=== PATIENT | female | born 1945 | race Caucasian/White ===

== ENCOUNTER → 2017-06-27 | Outpatient (CLI) | payer OTHER, BC ==
[~2017-06-27] MED LIST: AMOX250C3 PO; ASPEC81 PO; ASPI81TA28 PO; BNTUNK; CIPR1TAB11 PO; CLB/200 PO; CRAN1CAP14 PO; CYM/30 PO; DICY20TA10 PO; DULO60CA44 PO; FENO134C2 PO; GABA300C19 PO; MECL1TAB42 PO; MRPSRUNK; MULT-506 PO; ONDA4TAB65 PO; POLY99.02 OP; PRAV20TA PO; PRLSR20 PO; RXC5 PO; SITA100T3 PO; VALS160T60 PO; [UNRECOGNIZED DRUG - CODE] PO; trilipix; vagifem
--- NOTE | 2017-06-27 17:10 | DIAGNOSTIC IMAGING REPORT ---
ULTRASOUND BILATERAL LOWER EXTREMITY VENOUS CLINICAL HISTORY: Lower extremity edema. COMPARISON STUDY: No priors. TECHNIQUE: Real-time, grayscale, and color Doppler sonography of the deep veins of the right and left lower extremity was performed from the inguinal crease to the calf. Compression and augmentation were utilized. FINDINGS: There is no sonographic evidence of deep venous thrombosis identified in the right or left lower extremity. The common femoral, superficial femoral, and popliteal veins are patent and normally compressible bilaterally. The greater saphenous vein and the profunda femoris vein at the junction with the common femoral vein are clear in both legs. The visualized calf veins are patent bilaterally. IMPRESSION: There is no sonographic evidence of deep venous thrombosis identified in the right or left lower extremity. Electronically signed by: Jed Douglass M.D. 06/27/2017 5:09 PM Dictated Date/Time: 06/27/2017 5:09 PM
--- NOTE | 2017-07-01 14:04 | CODING QUERY MEDICAL NECESSITY ---
SUPPORTING DIAGNOSIS NEEDED A supporting diagnosis is required for the test/procedure performed on this patient in order for us to be reimbursed by the patient's insurance. Please provide a supporting diagnosis for the following test/procedure listed below next to the test name along with your signature. *If there is no additional diagnosis for this patient that would support the following test/procedure please document that below next to the test/procedure. Test(s)/Procedure(s) that require a supporting diagnosis: * US VENOUS DOPPLER EXT BILATERAL DIAGNOSIS: Provider Signature: Date: Thank you Tiffany Christiansen [employer] Once completed, please kindly fax back to [phone] For questions please call [phone]
== END | disposition home or self-care (01) ==
LOC: C.ULTR 16:08
PROVIDERS: ATTEND Orthopaedic Surgery Orthopaedic Surgery of the Spine
DX: M79.89 Other specified soft tissue disorders (principal); R22.43 Localized swelling, mass and lump, lower limb, bilateral

== ENCOUNTER 2017-07-13 07:58 | Inpatient (IN) | payer OTHER, BC ==
[2017-07-07 09:47] VITALS: BMI 31.0
--- NOTE | 2017-07-07 10:34 | PAT Medication Instructions ---
Service Date Jul 07, 2017. Current Home Medication List Aspirin (Aspirin Ec), 81 MG PO QPM Celecoxib (CeleBREX), 1 CAP PO QAM Cranberry-Vitamin C-Vitamin E (Cranberry Plus Vitamin C), 1 CAP PO QAM Dicyclomine Hcl (Dicyclomine Hcl), 1 TAB PO BID PRN for PRN Duloxetine HCl (Cymbalta), 1 CAP PO QPM Duloxetine Hcl (Cymbalta), 60 MG PO QPM Fenofibrate (Tricor ), 134 MG PO QPM Gabapentin (Neurontin), 300 MG PO BID Meclizine Hcl (Meclizine Hcl), 1 TAB PO TID PRN for VERTIGO Omeprazole (Prilosec), 20 MG PO DAILY PRN for Indigestion Pravastatin (Pravachol ), 20 MG PO QPM Sitagliptin Phosphate (Januvia), 100 MG PO NOON Valsartan/Hctz (Diovan Hct 160MG/25MG), 1 TAB PO QAM Medication Instructions For Your Scheduled Surgery - Held as of 07/05/17: Aspirin (Aspirin Ec), 81 MG PO QPM Celecoxib (CeleBREX), 1 CAP PO QAM - Hold the following medications as of 07/08/17: Cranberry-Vitamin C-Vitamin E (Cranberry Plus Vitamin C), 1 CAP PO QAM - Hold the following medications 24 hours prior to surgery: Fenofibrate (Tricor ), 134 MG PO QPM - Hold the following medications the morning of surgery: Dicyclomine Hcl (Dicyclomine Hcl), 1 TAB PO BID PRN for PRN Sitagliptin Phosphate (Januvia), 100 MG PO NOON Valsartan/Hctz (Diovan Hct 160MG/25MG), 1 TAB PO QAM - Take the following medications the morning of surgery with a sip of water OTHERWISE NOTHING TO EAT OR DRINK AFTER MIDNIGHT: Gabapentin (Neurontin), 300 MG PO BID Meclizine Hcl (Meclizine Hcl), 1 TAB PO TID PRN for VERTIGO Omeprazole (Prilosec), 20 MG PO DAILY PRN for Indigestion - Take the following medications as scheduled the night before surgery: Duloxetine HCl (Cymbalta), 1 CAP PO QPM Duloxetine Hcl (Cymbalta), 60 MG PO QPM Dicyclomine Hcl (Dicyclomine Hcl), 1 TAB PO BID PRN for PRN Pravastatin (Pravachol ), 20 MG PO QPM Gabapentin (Neurontin), 300 MG PO BID Meclizine Hcl (Meclizine Hcl), 1 TAB PO TID PRN for VERTIGO If you have any questions please call us at [phone] or [phone] or [phone]
--- NOTE | 2017-07-07 11:29 | DIAGNOSTIC IMAGING REPORT ---
CHEST PREADMISSION(PA/LAT) CLINICAL HISTORY: Preoperative chest COMPARISON STUDY: May 21, 2011 FINDINGS: The cardiac and mediastinal contours are normal. There is no evidence of focal pulmonary consolidation. There is no evidence of failure. No pleural effusions are visualized.[ Postsurgical changes are present within the lumbar spine. There is a prominent scoliosis. There are advanced arthritic changes within the right shoulder. IMPRESSION: No active disease in the chest. Electronically signed by: Dre Arboleda M.D. 07/07/2017 11:28 AM Dictated Date/Time: 07/07/2017 11:28 AM
[2017-07-07 12:14] LABS: BASO % 1.4 %; COMPLETE YES; EOS % 2.2 %; HEMATOCRIT 45.3 % (37-47); IG% 0.3 %; LYMPH % 29.2 %; MEAN CELL VOLUME 93.8 fL (80-100); MEAN CORPUSCULAR HEMOGLOBIN 31.1 pg (25-34); MEAN CORPUSCULAR HGB CONC 33.1 g/dl (32-36); MEAN PLATELET VOLUME 10.5 fL (7.4-10.4); MONO % 8.2 %; NEUT % 58.7 %; PLATELET COUNT 348 K/uL (130-400); RED BLOOD COUNT 4.83 M/uL (4.2-5.4); WHITE BLOOD COUNT 7.19 K/uL (4.8-10.8)
[2017-07-07 12:28] LABS: BUN/CREATININE RATIO 32.4 (10-20); CALCIUM 9.9 mg/dl (8.5-10.1); CREATININE 0.65 mg/dl (0.60-1.20); POTASSIUM 4.2 mmol/L (3.5-5.1)
[2017-07-07 12:36] LABS: URINE APPEARANCE CLEAR (CLEAR); URINE BILIRUBIN NEG (NEG); URINE COLOR YELLOW; URINE EPITHELIAL CELL AUTO 0-5 /lpf (0-5); URINE NITRITE NEG (NEG); URINE PH 5.5 (4.5-7.5); URINE SPECIFIC GRAVITY 1.019 (1.000-1.030); UROBILINOGEN NEG (NEG)
[2017-07-07 12:42] LABS: MANUAL MICROSCOPIC REQUIRED? NO; REVIEW REQ? NO
[2017-07-13] VITALS (12 sets, daily range): BP systolic 120–160; BP diastolic 62–97; PULSE 81–97; TEMP 36.3–36.9; O2SAT 94–98; Ht 165.1 cm; Wt 84.9 kg
[~2017-07-13] VITALS: Ht 165.1 cm; Wt 84.9 kg
[~2017-07-13 07:58] MED LIST changes: -AMOX250C3 PO; -ASPEC81 PO; +ATROPINE SULFATE 0.1 MG/ML 5ML SYR IV PRN; -BNTUNK; +CEFAZOLIN 2000 MG/60 ML D5W IV SCH; -CIPR1TAB11 PO; +EpHEDrine SULFATE INJ 50 MG/ML AMP IV PRN; +FENTANYL CITRATE INJ 50 MCG/1 ML 2 ML VIAL IV PRN; +LACTATED RINGER'S 1000ML 1,000 ML IV SCH; -MRPSRUNK; -MULT-506 PO; -ONDA4TAB65 PO; +ONDANSETRON INJ 2 MG/ML 2 ML VIAL IV PRN; -POLY99.02 OP; -RXC5 PO; -[UNRECOGNIZED DRUG - CODE] PO; -trilipix; -vagifem
[2017-07-13] MEDS ORDERED: CIPR1TAB11 PO (08:56)
[2017-07-13] MEDS ORDERED: AMOX250C3 PO (08:56)
[2017-07-13] MEDS ORDERED: MIDAZOLAM HCL 1 MG/ML 2ML VIAL ONE (09:02)
[2017-07-13] MEDS ORDERED: FENTANYL CITRATE INJ 50 MCG/1 ML 2 ML VIAL ONE ×4 (09:03→11:22)
--- NOTE | 2017-07-13 09:06 | History & Physical Bridge Note ---
H&P Re-Evaluation Bridge Note: I have examined the patient, reviewed the History & Physical and in the interval since the performance of the History & Physical I have noted the following changes of clinical significance: No changes noted
--- NOTE | 2017-07-13 09:08 | History and Physical ---
History & Physical Date Jul 13, 2017. Chief Complaint Neck and arm pain History of Present Illness The patient is a 72 year old female with complaints of neck and arm pain Additional History Hepatic Disease: No Endocrine Disorder: No Kidney Disease: No Hypertension: No Heart Disease: No Bleeding Tendencies: No Infectious Diseases: No Allergies Coded Allergies: Amlodipine (Verified Allergy, Unknown, chest pain, 07/13/17) Benazepril (Verified Allergy, Unknown, chest pain, 07/13/17) Morphine (Verified Allergy, Unknown, vomiting, 07/13/17) Home Medications Scheduled Amoxicillin (Amoxil), Unknown Dose PO TID Aspirin (Aspirin Ec), 81 MG PO QPM Celecoxib (CeleBREX), 1 CAP PO QAM Ciprofloxacin Tab (Cipro), Unknown Dose PO BID Cranberry-Vitamin C-Vitamin E (Cranberry Plus Vitamin C), 1 CAP PO QAM Duloxetine HCl (Cymbalta), 1 CAP PO QPM Duloxetine Hcl (Cymbalta), 60 MG PO QPM Fenofibrate (Tricor ), 134 MG PO QPM Gabapentin (Neurontin), 300 MG PO BID Pravastatin (Pravachol ), 20 MG PO QPM Sitagliptin Phosphate (Januvia), 100 MG PO NOON Valsartan/Hctz (Diovan Hct 160MG/25MG), 1 TAB PO QAM Scheduled PRN Dicyclomine Hcl (Dicyclomine Hcl), 1 TAB PO BID PRN for PRN Meclizine Hcl (Meclizine Hcl), 1 TAB PO TID PRN for VERTIGO Omeprazole (Prilosec), 20 MG PO DAILY PRN for Indigestion Physical Examination Skin: warm/dry, no rash Eyes: normal inspection, EOMI, sclerae normal ENT: normal ENT inspection, pharynx normal Head: normocephalic, atraumatic Neck: supple, no adenopathy, trachea midline Respiratory/Chest: lungs clear, normal breath sounds, no respiratory distress Cardiovascular: regular rate, rhythm, no edema, no murmur Abdomen / GI: normal bowel sounds, non tender Back: normal inspection Extremities: normal inspection, normal range of motion Neurologic/Psych: no motor/sensory deficits, alert, normal reflexes, oriented x 3 Diagnosis Cervical spinal stenosis with myeloradiculopathy Plan of Treatment Anterior cervical discectomy and fusion C4 5 with corpectomy of C6 possible ACDF C3 4
[2017-07-13] MEDS ORDERED: SCOPOLAMINE 1.5 MG TDSY TD ONE (09:24)
[2017-07-13] MEDS ORDERED: BACITRACIN 50000 UNIT VIAL ONE (09:29)
[2017-07-13] MEDS ORDERED: SCOPOLAMINE 1.5 MG TDSY TD SCH ×2 (09:30→12:00)
[2017-07-13] MEDS ORDERED: HYDROmorphone INJ 2 MG/ML SYR/VIAL ONE (10:15)
[2017-07-13] MEDS ORDERED: FLOSEAL HEMOSTATIC MATRIX 5ML TOP ONE (11:49)
[2017-07-13] MEDS ORDERED: PHENYLEPHRINE 100MCG/ML 5ML SYR ONE (11:55)
[2017-07-13] MEDS ORDERED: DEXAMETHASONE SOD INJ 4 MG/ML VIAL ONE (11:55)
[2017-07-13] MEDS ORDERED: ONDANSETRON INJ 2 MG/ML 2 ML VIAL ONE (11:55)
[2017-07-13] MEDS ORDERED: ROCURONIUM BROMIDE 10 MG/ML 5 ML VIAL IV ONE (11:55)
[2017-07-13] MEDS ORDERED: LABETALOL HCL IV 5 MG/ML 20ML IV ONE (11:55)
[2017-07-13] MEDS ORDERED: RANITIDINE HCL 25 MG/ML INJ ONE (11:55)
[2017-07-13] MEDS ORDERED: PROPOFOL IV EMULSION 10 MG/ML 20 ML VIAL IV ONE (11:55)
[2017-07-13] MEDS ORDERED: LIDOCAINE HCL 2% 2 ML VIAL (20MG/ML) ONE (11:55)
[2017-07-13] MEDS ORDERED: NEOSTIGMINE METHYLSULFATE 1 MG/ML 10ML VIAL ONE (11:55)
[2017-07-13] MEDS ORDERED: GLYCOPYRROLATE INJ 0.2 MG/ML VIAL ONE (11:55)
[2017-07-13] MEDS ORDERED: MAGNESIUM HYDROXIDE SUSP 30 ML UDC PO PRN (12:00)
[2017-07-13] MEDS ORDERED: DiphenhydrAMINE HCL 50 MG/ML VIAL IV PRN (12:00)
[2017-07-13] MEDS ORDERED: LORAZEPAM 0.5 MG TAB PO PRN (12:00)
[2017-07-13] MEDS ORDERED: RACEPINEPHRINE 2.25% NEBU SOLN 0.5 ML VIAL INH PRN (12:00)
[2017-07-13] MEDS ORDERED: DO NOT ADMINISTER FLU VACCINE PRN ×3 (12:00)
[2017-07-13] MEDS ORDERED: ONDANSETRON INJ 2 MG/ML 2 ML VIAL IV PRN (12:00)
[2017-07-13] MEDS ORDERED: NALOXONE HCL 0.4 MG/1 ML VIAL/CARP IV PRN (12:00)
[2017-07-13] MEDS ORDERED: DEXAMETHASONE INJ 8 MG in SYRINGE 0 ML IV PRN (12:00)
[2017-07-13] MEDS ORDERED: HYDROmorphone INJ 0.5 MG/0.5 ML SYR IV PRN (12:00)
[2017-07-13] MEDS ORDERED: ACETAMINOPHEN IV 100 ML IV PRN (12:00)
[2017-07-13] MEDS ORDERED: DO NOT ADMINISTER PNEUMOCOCCAL VACCINE PRN ×2 (12:00)
--- NOTE | 2017-07-13 12:07 | [facility] Operative Report ---
Operative Report Operative Date Jul 13, 2017. Pre-Operative Diagnosis Cervical Spinal Stenosis with myeloradiculopathy Post-Operative Diagnosis same Procedure(s) Performed #1 anterior cervical corpectomy C6. #2 anterior cervical discectomy C4 5. #3 into her cervical arthrodesis C4 to C5 C5 to C7. #4 placement peek cage 8 mm in height C4 5 and 23 mm C5 to C7. #5 of locally harvested morcellized autograft combined with ostial amp in the interbody cages. #6 application of nuñez plate and screws from C4 to C7. Surgeon Dr. Domenico Haile Biomedical Manager Surgeon(s) Vicky Rose PA-C Estimated Blood Loss 20 ml Findings Severe spinal stenosis Specimens none per surgeon Description of Procedure Patient was met with preoperatively case discussed all questions are dressed. After informed consent was obtained patient was taken to the operative suite underwent intubation placed in a supine position the Zacarias table head in [place] headholder. All bony promises well-padded eyes inspected to ensure no external pressure. This point the anterior cervical spine was prepped and draped nostril fashion. Sharp dissection we assistance of bipolar electrocautery was performed onto an exposing the anterior cervical spine spine from C4 to C7. Self retaining retractors were placed. Verified our position with fluoroscopy. Complete discectomy of C5 6 was performed out to the uncovertebral joints followed by C6 7. [place] distracting pins were then placed in C5 and C7 to distract across C6 vertebral body. Complete corpectomies and performed including removal of all posterior annular fibers and longitudinal ligament and bilateral foraminotomies. An plates were then burred to subcortical bleeding bone and a 23 mm peek cage filled with locally harvested morcellized autograft ostial amp tapped in position. Distracting apparatus was removed and I proceeded the C4 5. Again a complete discectomy performed out to the uncovertebral joints bilaterally. I did remove all posterior inner fibrous longitudinal ligament and bilateral foraminotomies performed. An plates were then burred to subcortical bleeding bone and an 8 mm peek cage filled with ostial amp and local autograft tapped in position. Distracting apparatus was removed all anterior osteophytes burred to smooth cortical surface. Nñuez plate and screws with applied with the assistance of fluoroscopy. Incision was in copious irrigated explored to ensure there is no damage to surrounding structures remaining bleeding. 10 round JOSE G drain inserted. Incision was then closed with 2 Vicryl in the fascia and 4 Monocryl for final skin closure. Steri-Strips sterile dressing placed. Patient we can taken to PACU in stable condition. Please note Vicky Lee was present at the entire procedure involved in patient positioning complex portions of the procedure and final skin closure. I attest to the content of the Intraoperative Record and any orders documented therein. Any exceptions are noted below.
--- NOTE | 2017-07-13 13:18 | Anesthesiology Progress Note ---
Anesthesia Post Op Note Date & Time Jul 13, 2017 at 13:17 Vital Signs Pain Intensity: 2 Vital Signs Past 12 Hours Date Time Temp Pulse Resp B/P (MAP) Pulse Ox O2 Delivery O2 Flow Rate FiO2 07/13/17 13:05 36.6 85 14 142/94 96 Nasal Cannula 2 07/13/17 12:55 85 14 146/80 96 Nasal Cannula 2 07/13/17 12:45 85 14 129/84 96 Nasal Cannula 2 07/13/17 12:35 85 14 138/81 98 Oxymask 10 07/13/17 12:25 85 14 148/88 98 Oxymask 10 07/13/17 12:15 83 14 114/93 98 Oxymask 10 07/13/17 12:05 36.4 88 14 149/92 98 Oxymask 10 07/13/17 08:30 36.6 97 20 160/97 97 Room Air Notes Mental Status: alert / awake / arousable, participated in evaluation Pt Amnestic to Procedure: Yes Nausea / Vomiting: adequately controlled Pain: adequately controlled Airway Patency, RR, SpO2: stable & adequate BP & HR: stable & adequate Hydration State: stable & adequate Anesthetic Complications: no major complications apparent Anesthetic Complications: Upper lip cut during intubation - no damage to teeth or gums. Cut on lip clean and dry on discharge from PACU.
--- NOTE | 2017-07-13 13:58 | DIAGNOSTIC IMAGING REPORT ---
CERVICAL 2 OR 3 VIEWS CLINICAL HISTORY: Anterior discectomy and fusion. COMPARISON STUDY: No previous studies for comparison. Fluoroscopy time: 11 seconds. FINDINGS: 2 fluoroscopic images demonstrate a C6 corpectomy and C4-C5 discectomy with a C4-C7 anterior fusion with 2 screws within the C4, C5 and C7 vertebral bodies. Endotracheal tube is noted. IMPRESSION: Fluoroscopic images demonstrating a C6 corpectomy, C4-C5 discectomy and C4-C7 anterior fusion. Electronically signed by: Philip Morataya M.D. 07/13/2017 1:57 PM Dictated Date/Time: 07/13/2017 1:42 PM
[2017-07-13] MEDS: SODIUM CHLORIDE 0.9% 1000ML 1,000 ML IV SCH (14:25)
[2017-07-13] MEDS ORDERED: CHECK SCOPOLAMINE PATCH PLACEMENT SCH (16:00)
[2017-07-13] MEDS: CHECK SCOPOLAMINE PATCH PLACEMENT SCH (16:00)
[2017-07-13] MEDS ORDERED: NURSING VERBAL MED ORDER ONE (18:00)
[2017-07-13] MEDS ORDERED: PHARMACY GLYCEMIC MGMT CONSULT PRN (18:04)
[2017-07-13] MEDS: CEFAZOLIN IV 2,000 MG in DEXTROSE 5% 50ML 50 ML IV SCH (18:13)
[2017-07-13] MEDS ORDERED: GLUCAGON FOR INJ 1 MG VIAL SQ PRN (18:15)
[2017-07-13] MEDS ORDERED: GLUCOSE 10 TABS/TUBE PO PRN (18:15)
[2017-07-13] MEDS ORDERED: DEXTROSE 50% 50 ML SYR IV PRN (18:15)
[2017-07-13] MEDS ORDERED: GLUCOSE 40% GEL 15 GM TUBE PO PRN (18:15)
[2017-07-13] MEDS ORDERED: INSULIN GLARGINE SOLOSTAR 100 UNITS/ML 3 ML PEN SC ONE ×2 (18:30→23:00)
[2017-07-13] MEDS: INSULIN ASPART 100 UNITS/ML 3 ML PEN SC SCH ×2 (18:38→21:04)
--- NOTE | 2017-07-13 18:51 | Pharmacy Progress Note ---
Glycemic Control Intl Consult Date of Service Jul 13, 2017. Scope Glycemic Pharmacist consulted by JOCELYN Moe on 07/13/17 for glycemic control and to write orders per [facility] inpatient glycemic control protocol Objective Weight (Kilograms): 84.900 Accuchecks BSG (last 24hrs): Test 07/13/17 08:41 07/13/17 12:15 07/13/17 17:00 Bedside Glucose 115 mg/dl (70-90) 139 mg/dl (70-90) 207 mg/dl (70-90) Recent Pertinent Medications Outpatient Anti-diabetic Regimen: * Januvia 100 mg daily - patient reports this is new * A1c = unknown Risk Factors for Insulin Resistance: * Steroids: Decadron 12 mg intraop and 6 mg x 3 doses ordered postop * Recent Surgery: POD #0 s/p spinal surgery * Diet: Clear/type 2 diabetes Assessment & Plan ASSESSMENT: * 72 y/o female with a recent diagnosis of diabetes * Pt is maintained on oral antidiabetic agents as an outpatient * Oral agents are not recommended for inpatient use d/t drug interactions, changing PO intake, and difficulty titrating for acute hyper/hypoglycemia. ADA recommends re-initiating outpatient oral agents 1-2 days prior to discharge if/ when appropriate if they were held on admission. * Will hold oral agents for admission and utilize SQ basal bolus insulin regimen which is the recommended regimen for inpatient glycemic control. * Will initiate weight based insulin dosing for insulin deric patient and titrate based on BSG trends. * With high dose Decadron on board and continuing postoperatively, patients usually require large amounts of insulin in the postop period. Will plan to initiate insulin orders using insulin calculator estimates based upon a stress level of 3 for POD #0, stress level of 2 for AM of POD #1 and stress level of 3 for PM of POD #2 PLAN FOR INPATIENT GLYCEMIC CONTROL: * Holding outpatient oral diabetes medications - can resume POD #1 or #2 if po intake acceptable * For 07/13 * LANTUS 30 units x 1 now, then additional 10 units tonight if BSG > 150 * Novolog ACHS + 0200 * Goal 110-140 * CF 20 * CR 6 * For 07/14 * Lantus 15 units in the AM, 8 units in the PM * Novolog ACHS * Goal 110-140 * CF 20 -> change to 30 starting with dinner * CR 6 -> change to 9 starting with dinner * A1c w/ AM labs as per [facility] standards for inpatient diabetes control * Please note that the plan above was derived based on current level of insulin resistance and hospital stress. These recommendations are appropriate for inpatient admission only. Plan of care upon discharge will need to be reassessed to avoid potential outpatient hypo/hyperglycemia. Thank you.
[2017-07-13] MEDS: DEXAMETHASONE INJ 6 MG in SYRINGE 0 ML IV SCH (20:21)
[2017-07-13] MEDS: DOCUSATE SODIUM 100 MG CAP PO SCH (21:01)
[2017-07-14] VITALS (18 sets, daily range): BP systolic 127–149; BP diastolic 74–84; PULSE 67–81; TEMP 36.3–37.2; O2SAT 92–97
[2017-07-14] MEDS: CHECK SCOPOLAMINE PATCH PLACEMENT SCH ×3 (00:21→15:54)
[2017-07-14] MEDS: SODIUM CHLORIDE 0.9% 1000ML 1,000 ML IV SCH (00:21)
[2017-07-14] MEDS ORDERED: INSULIN ASPART 100 UNITS/ML 3 ML PEN SC ONE (02:00)
[2017-07-14] MEDS: CEFAZOLIN IV 2,000 MG in DEXTROSE 5% 50ML 50 ML IV SCH ×2 (02:09→10:41)
[2017-07-14] MEDS: DEXAMETHASONE INJ 6 MG in SYRINGE 0 ML IV SCH ×2 (04:04→12:57)
--- NOTE | 2017-07-14 06:56 | Clinical Documentation Query ---
Dr. MEIER POINT LAY : CLINICAL DOCUMENTATION QUERY Patient is a 72 year old female admitted for elective operative treatment of cervical spinal stenosis. H&P notes no PMH. However, home medication list includes: Scheduled Amoxicillin (Amoxil), Unknown Dose PO TID Aspirin (Aspirin Ec), 81 MG PO QPM Celecoxib (CeleBREX), 1 CAP PO QAM Ciprofloxacin Tab (Cipro), Unknown Dose PO BID Cranberry-Vitamin C-Vitamin E (Cranberry Plus Vitamin C), 1 CAP PO QAM Duloxetine HCl (Cymbalta), 1 CAP PO QPM Duloxetine Hcl (Cymbalta), 60 MG PO QPM Fenofibrate (Tricor ), 134 MG PO QPM Gabapentin (Neurontin), 300 MG PO BID Pravastatin (Pravachol ), 20 MG PO QPM Sitagliptin Phosphate (Januvia), 100 MG PO NOON Valsartan/Hctz (Diovan Hct 160MG/25MG), 1 TAB PO QAM Scheduled PRN Dicyclomine Hcl (Dicyclomine Hcl), 1 TAB PO BID PRN for PRN Meclizine Hcl (Meclizine Hcl), 1 TAB PO TID PRN for VERTIGO Omeprazole (Prilosec), 20 MG PO DAILY PRN for Indigestion In your clinical opinion is this patient being managed for: ( ) Osteoarthritis, GERD, hypertension, hyperlipidemia, depression, diabetes ( ) Not Agree ( ) Other explanation of clinical findings (Please Explain) ( ) Unable to determine (Please Define) ( ) Need to Discuss The medical record reflects the following clinical findings, treatment, and risk factors. Please clarify and document your clinical opinion in the progress notes and discharge summary. Terms such as "probable", "suspected", "likely", "questionable", "possible", or "still to be ruled out" are acceptable. IF IN AGREEMENT, YOU MUST DOCUMENT ABOVE DIAGNOSTIC STATEMENT IN DAILY PROGRESS NOTES AND DISCHARGE SUMMARY. This document is not part of the patient's record. Thank You, Marshall Schwartz, JARETT [phone]
[2017-07-14] MEDS: DOCUSATE SODIUM 100 MG CAP PO SCH ×2 (08:56→21:00)
[2017-07-14] MEDS ORDERED: INSULIN GLARGINE SOLOSTAR 100 UNITS/ML 3 ML PEN SC ONE ×2 (09:00→21:00)
[2017-07-14] MEDS: INSULIN ASPART 100 UNITS/ML 3 ML PEN SC SCH ×4 (09:00→21:00)
--- NOTE | 2017-07-14 09:02 | Progress Note ---
Progress Note Date of Service Jul 14, 2017. Progress Note Patient's swallowing recently well. Denies any hoarseness. Notes some improvement of the upper x-rays. Assessment status post anterior cervical discectomy and fusion. Plan at this time she'll be made nothing by mouth after midnight for plan for decompression and posterior cervical stabilization tomorrow.
[2017-07-14] MEDS: OXYCODONE HCL IR 5 MG TAB (IMMEDIATE RELEASE) PO PRN ×3 (10:45→21:30)
--- NOTE | 2017-07-14 10:57 | Anesthesiology Progress Note ---
Anesthesia Post Op Note Date & Time Jul 14, 2017 at 10:57 Vital Signs Pain Intensity: 6.0 Vital Signs Past 12 Hours Date Time Temp Pulse Resp B/P (MAP) Pulse Ox O2 Delivery O2 Flow Rate FiO2 07/14/17 10:46 37.1 72 16 131/76 95 Nasal Cannula 2.0 Humidified Oxygen 07/14/17 08:45 37.0 72 16 146/83 94 Nasal Cannula 2.0 Humidified Oxygen 07/14/17 07:40 Nasal Cannula 2.0 Humidified Oxygen 07/14/17 06:33 36.5 80 16 127/78 95 Nasal Cannula 07/14/17 04:45 36.3 74 16 139/74 95 Nasal Cannula 2.0 07/14/17 04:08 80 16 97 Nasal Cannula 3.0 07/14/17 02:34 36.5 80 16 136/82 96 Nasal Cannula 2.0 07/14/17 00:30 Nasal Cannula 2.0 07/14/17 00:30 79 16 132/84 96 Nasal Cannula 2.0 07/13/17 23:18 82 16 94 Nasal Cannula 3.5 Notes Mental Status: alert / awake / arousable, participated in evaluation Pt Amnestic to Procedure: Yes Nausea / Vomiting: adequately controlled Pain: adequately controlled Airway Patency, RR, SpO2: stable & adequate BP & HR: stable & adequate Hydration State: stable & adequate Anesthetic Complications: no major complications apparent
--- NOTE | 2017-07-14 13:07 | Anesthesiology Progress Note ---
Anesthesia Progress Note Date of Service Jul 14, 2017. Progress Notes The patient is a 72 y/o female scheduled for posterior cervical fusion by Dr. Haile tomorrow. On 07/13/17 she underwent an anterior neck fusion which she tolerated well. A Glidescope #3 was used with a good view. Other PMH includes HTN, dyslipidemia, GERD, NIDDM type 2, skin cancer, obesity, and migraines. On exam the patient is in a neck brace with a bandage over her anterior neck. she is a MP 3. Lungs are clear and heart is RRR. The patient was consented to general anesthesia. She was counseled to remain NPO after 2300.
[2017-07-14] MEDS ORDERED: NURSING VERBAL MED ORDER ONE ×2 (20:30→23:15)
[2017-07-14] MEDS: PRAVASTATIN SOD 20 MG TAB PO SCH (21:32)
[2017-07-14] MEDS: DULOXETINE (CYMBALTA) 30 MG CAP PO SCH (21:33)
[2017-07-15] VITALS (16 sets, daily range): BP systolic 117–155; BP diastolic 65–94; PULSE 64–82; TEMP 36.4–37.2; O2SAT 90–98
[2017-07-15] MEDS: CHECK SCOPOLAMINE PATCH PLACEMENT SCH ×2 (00:24→16:23)
[2017-07-15] MEDS ORDERED: BISACODYL 5 MG TABEC PO PRN (06:00)
[2017-07-15] MEDS: INSULIN ASPART 100 UNITS/ML 3 ML PEN SC SCH ×5 (06:00→21:37)
[2017-07-15] MEDS ORDERED: BISACODYL 10 MG SUPP PR PRN (06:00)
[2017-07-15] MEDS ORDERED: ROCURONIUM BROMIDE 10 MG/ML 5 ML VIAL IV ONE (06:32)
[2017-07-15] MEDS ORDERED: PROPOFOL IV EMULSION 10 MG/ML 20 ML VIAL IV ONE ×3 (06:32→07:53)
[2017-07-15] MEDS ORDERED: ONDANSETRON INJ 2 MG/ML 2 ML VIAL ONE (06:32)
[2017-07-15] MEDS ORDERED: LIDOCAINE HCL 2% 2 ML VIAL (20MG/ML) ONE (06:32)
[2017-07-15] MEDS ORDERED: FENTANYL CITRATE INJ 50 MCG/1 ML 2 ML VIAL ONE ×2 (06:32→10:02)
[2017-07-15] MEDS ORDERED: DEXAMETHASONE SOD INJ 4 MG/ML VIAL ONE (06:32)
[2017-07-15] MEDS ORDERED: MIDAZOLAM HCL 1 MG/ML 2ML VIAL ONE (06:32)
[2017-07-15] MEDS ORDERED: SODIUM CHLORIDE 0.9% PF 50 ML VIAL ONE (06:58)
[2017-07-15] MEDS ORDERED: BACITRACIN 50000 UNIT VIAL ONE (06:58)
[2017-07-15] MEDS ORDERED: THROMBIN FOR SOLN 20000 UNIT KIT ONE (07:11)
[2017-07-15] MEDS ORDERED: BUPIVACAINE/EPINEPHRINE 0.5% MPF 1:200,000 30 ML VIAL ONE (07:12)
[2017-07-15] MEDS: CEFAZOLIN IV 2,000 MG/60 ML D5W IV ONE ×2 (07:13→07:36)
[2017-07-15] MEDS ORDERED: SCOPOLAMINE 1.5 MG TDSY TD ONE (07:13)
--- NOTE | 2017-07-15 07:34 | History & Physical Bridge Note ---
H&P Re-Evaluation Bridge Note: I have examined the patient, reviewed the History & Physical and in the interval since the performance of the History & Physical I have noted the following changes of clinical significance: No changes noted decompression fusion c3-c7
[2017-07-15] MEDS ORDERED: NURSING VERBAL MED ORDER ONE ×2 (07:45→16:00)
[2017-07-15] MEDS ORDERED: HYDROmorphone INJ 2 MG/ML SYR/VIAL ONE ×2 (08:10→10:08)
[2017-07-15] MEDS: DOCUSATE SODIUM 100 MG CAP PO SCH ×2 (08:51→21:34)
[2017-07-15] MEDS ORDERED: FLOSEAL HEMOSTATIC MATRIX 10ML TOP ONE (09:55)
[2017-07-15] MEDS ORDERED: LORAZEPAM 0.5 MG TAB PO PRN (10:00)
[2017-07-15] MEDS ORDERED: NALOXONE HCL 0.4 MG/1 ML VIAL/CARP IV PRN ×2 (10:00)
[2017-07-15] MEDS ORDERED: DO NOT ADMINISTER PNEUMOCOCCAL VACCINE PRN ×2 (10:00)
[2017-07-15] MEDS ORDERED: DEXAMETHASONE INJ 8 MG in SYRINGE 0 ML IV PRN (10:00)
[2017-07-15] MEDS ORDERED: DiphenhydrAMINE HCL 50 MG/ML VIAL IV PRN (10:00)
[2017-07-15] MEDS ORDERED: INSULIN GLARGINE SOLOSTAR 100 UNITS/ML 3 ML PEN SC ONE (10:00)
[2017-07-15] MEDS ORDERED: MAGNESIUM HYDROXIDE SUSP 30 ML UDC PO PRN (10:00)
[2017-07-15] MEDS ORDERED: DO NOT ADMINISTER FLU VACCINE PRN ×3 (10:00)
[2017-07-15] MEDS ORDERED: LORAZEPAM INJ 0.5 MG in SYRINGE 0.75 ML IV PRN (10:00)
[2017-07-15] MEDS ORDERED: RACEPINEPHRINE 2.25% NEBU SOLN 0.5 ML VIAL INH PRN ×2 (10:00)
[2017-07-15] MEDS ORDERED: HYDROmorphone INJ 0.5 MG/0.5 ML SYR IV PRN (10:00)
--- NOTE | 2017-07-15 10:11 | [facility] Operative Report ---
Operative Report Operative Date Jul 15, 2017. Pre-Operative Diagnosis Cervical Spinal Stenosis with myeloradiculopathy Post-Operative Diagnosis same Procedure(s) Performed #1 posterior cervical decompression C3 C4 C5. #2 posterior cervical fusion C3 to C7. #3 placement posterior cervical instrumentation using globus rods and screws C3 to C7. #4 placement of locally harvested morcellized autograft in the posterior gutters. #5 placement of infuse collagen sponge and Master graft the posterior gutters. Surgeon Dr. Domenico Haile Manager Supply Surgeon(s) Andrea Shirley PA-C Estimated Blood Loss 100 ml Findings Severe spinal stenosis Specimens none per surgeon Description of Procedure Patient was met with preoperatively case discussed all questions are were addressed. After informed consent patient was taken to the operative suite underwent intubation placed in 3 prolonged Lr headholder. She's placed in a prone position the Zacarias table with chest pads and hip bolsters. All bony prominences were well-padded eyes inspected to ensure no external pressure. At this time the posterior cervical thoracic spine was prepped and draped nostril fashion. Sharp dissection with the assistance of [place] cautery was performed onto an exposing the lamina and lateral masses of C3-C4 C5-C6 and C7. Verified a position with fluoroscopy. Then performed a complete laminectomy of C5 C4 and C3. Lateral mass screws were then placed with the assistance of fluoroscopy in C3 C4 C6 and C7 bilaterally. The appropriate least sized michele was contoured and locked in position. The lateral masses in joints of C3 4 C4 5 C5 6 C6 7 burred to subcortical bleeding bone infuse collagen sponge mask graft and locally harvested morcellized autograft was placed in the posterior lateral gutters. 15 round JOSE G drain was inserted. Incision was then closed with 1 Vicryl in the fascia 2-0 Vicryl subcutaneous C 4 Monocryl for final skin closure Steri-Strip sterile dressing was placed patient we can take PACU stable condition. Please note Rodri record was present at the entire procedure involved in patient positioning complex portions of the surgery and final skin closure. I attest to the content of the Intraoperative Record and any orders documented therein. Any exceptions are noted below.
[2017-07-15] MEDS ORDERED: LABETALOL HCL IV 5 MG/ML 20ML IV ONE (10:35)
--- NOTE | 2017-07-15 10:59 | Pharmacy Progress Note ---
Glycemic Control Progress Note Date of Service Jul 15, 2017. Scope Glycemic Pharmacist consulted for glycemic control to write orders per [facility] inpatient glycemic control protocol. Objective Accuchecks BSG (last 24hrs): Test 07/14/17 11:58 07/14/17 17:09 07/14/17 20:44 07/15/17 00:21 Bedside Glucose 112 mg/dl (70-90) 167 mg/dl (70-90) 104 mg/dl (70-90) 91 mg/dl (70-90) Test 07/15/17 06:16 Bedside Glucose 94 mg/dl (70-90) HbA1c: Test 07/14/17 08:27 Hemoglobin A1c 6.1 % (4.5-5.6) H Recent Pertinent Medications The patient is currently receiving: * Basal insulin: Lantus one time doses per pharmacy * Correctional Insulin: Novolog Correction per scale ACHS Goal Range: Low 110 mg/dL - High 140 mg/dL Correction Factor: 30 mg/dL/unit * Prandial insulin: Per carb ratio of 1 unit per 9 grams CHO consumed Outpatient Anti-Diabetic Meds Januvia 100mg po daily at 1200 Assessment & Plan ASSESSMENT: * See progress note from 07/13 for more background info, in short: * Pt receiving SQ basal bolus insulin regimen for hyperglycemia secondary to baseline DM (outpatient regimen on hold), recent surgery, s/p decompression and posterior cervical stabilization today, and previous spinal surgery 07/13, and IV steroids pre and post op. * Changes needed to insulin regimen: * Lantus load for IV steroids and possibly another dose tomorrow morning based on BSG trends * Tighten CF/CR for IV steroids and loosen as steroids taper off PLAN FOR INPATIENT GLYCEMIC CONTROL: * Oral Agents * Continue to hold outpatient oral diabetes medications. * Resume 1-2 days post op, after renal function stable and diet tolerated * Basal insulin * Lantus 40 units SQ x 1 dose now * One time dose tomorrow morning based on BSG (likely 15 units) * Bolus insulin * NovoLog per scale ACHS or Q6hrs while NPO and overnight at 0200 * Goal Range: Low 110 mg/dL - High 140 mg/dL * Correction Factor: 20 mg/dL/unit * Nutritional / Prandial insulin per carb ratio of 1 unit per 6 grams CHO consumed * Loosen CF and CR tomorrow after IV steroids are discontinued and BSGs trending down RECOMMENDATIONS FOR DISCHARGE: * Continue Januvia 100mg PO daily at noon (A1c = 6.1%) * Please note that the plan above was derived based on current level of insulin resistance and hospital stress. These recommendations are appropriate for inpatient admission only. Plan of care upon discharge will need to be reassessed to avoid potential outpatient hypo/hyperglycemia. Thank you.
--- NOTE | 2017-07-15 11:14 | DIAGNOSTIC IMAGING REPORT ---
INTRAOPERATIVE RADIOGRAPHS CLINICAL HISTORY: C3-C7 spinal fusion. Fluoroscopy time: 24 seconds. FINDINGS: 5 spot fluoroscopic views of the cervical spine are correlated with intraoperative radiograph dated 07/13/2017. Again seen are changes from anterior fusion from C4 -C7. There are now changes from laminectomy and posterior fusion seen from C3 -C7. Interpedicular screws are present at all levels with the exception of C5. Discectomy change is again seen in the lower cervical region. Coils are noted below the C2 spinous process. The orthopedic hardware appears intact. An endotracheal tube is noted. IMPRESSION: Intraoperative images from posterior C3-C7 spinal fusion as above. Electronically signed by: Jed Douglass M.D. 07/15/2017 11:12 AM Dictated Date/Time: 07/15/2017 11:10 AM
--- NOTE | 2017-07-15 11:35 | Anesthesiology Progress Note ---
Anesthesia Post Op Note Date & Time Jul 15, 2017 at 11:35 Vital Signs Pain Intensity: 0 Vital Signs Past 12 Hours Date Time Temp Pulse Resp B/P (MAP) Pulse Ox O2 Delivery O2 Flow Rate FiO2 07/15/17 11:30 72 17 139/80 92 Nasal Cannula 4 07/15/17 11:20 36.2 69 15 135/76 93 Nasal Cannula 4 07/15/17 11:10 71 15 146/68 92 Nasal Cannula 4 07/15/17 11:00 72 12 132/72 95 Oxymask 10 07/15/17 10:50 71 13 138/67 95 Oxymask 10 07/15/17 10:40 68 18 110/53 96 Oxymask 10 07/15/17 10:34 36.4 93 16 160/102 98 Oxymask 10 07/15/17 07:01 36.8 78 16 164/78 (106) 90 Room Air 07/15/17 05:55 36.9 82 16 152/79 (103) 90 Room Air 07/15/17 03:52 36.7 69 16 155/86 93 Room Air 07/15/17 03:27 76 16 94 Room Air 07/14/17 23:47 37.1 67 16 149/74 (99) 93 Notes Mental Status: alert / awake / arousable, participated in evaluation Pt Amnestic to Procedure: Yes Nausea / Vomiting: adequately controlled Pain: adequately controlled Airway Patency, RR, SpO2: stable & adequate BP & HR: stable & adequate Hydration State: stable & adequate Anesthetic Complications: no major complications apparent
[2017-07-15] MEDS ORDERED: SCOPOLAMINE 1.5 MG TDSY TD SCH (12:00)
[2017-07-15] MEDS: DEXAMETHASONE INJ 6 MG in SYRINGE 0 ML IV SCH ×2 (14:06→21:39)
[2017-07-15] MEDS: CEFAZOLIN IV 2,000 MG in DEXTROSE 5% 50ML 50 ML IV SCH (16:23)
[2017-07-15] MEDS: LACTATED RINGER'S 1000ML 1,000 ML IV SCH (16:24)
[2017-07-15] MEDS: OXYCODONE HCL IR 5 MG TAB (IMMEDIATE RELEASE) PO PRN (17:16)
[2017-07-15] MEDS: PRAVASTATIN SOD 20 MG TAB PO SCH (21:34)
[2017-07-15] MEDS: DULOXETINE (CYMBALTA) 30 MG CAP PO SCH (21:34)
[2017-07-16] VITALS (19 sets, daily range): BP systolic 135–172; BP diastolic 67–87; PULSE 63–80; TEMP 36.4–37; O2SAT 91–97
[2017-07-16] MEDS: CEFAZOLIN IV 2,000 MG in DEXTROSE 5% 50ML 50 ML IV SCH ×2 (00:05→07:46)
[2017-07-16] MEDS: CHECK SCOPOLAMINE PATCH PLACEMENT SCH ×2 (00:11→07:46)
[2017-07-16] MEDS ORDERED: INSULIN ASPART 100 UNITS/ML 3 ML PEN SC SCH (02:00)
[2017-07-16] MEDS: LACTATED RINGER'S 1000ML 1,000 ML IV SCH ×2 (02:00→12:14)
[2017-07-16] MEDS: DEXAMETHASONE INJ 6 MG in SYRINGE 0 ML IV SCH (05:22)
[2017-07-16] MEDS: DOCUSATE SODIUM 100 MG CAP PO SCH ×2 (08:58→20:55)
[2017-07-16] MEDS: OXYCODONE HCL IR 5 MG TAB (IMMEDIATE RELEASE) PO PRN ×3 (08:59→20:56)
[2017-07-16] MEDS ORDERED: POLYETHYLENE (MIRALAX) 17 GM PACK PO SCH (09:00)
[2017-07-16] MEDS: INSULIN ASPART 100 UNITS/ML 3 ML PEN SC SCH ×4 (09:04→20:55)
[2017-07-16] MEDS ORDERED: RXC5 PO (10:10)
--- NOTE | 2017-07-16 10:11 | Discharge Instructions ---
Discharge Instructions Date of Service Jul 16, 2017. Admission Reason for Admission: Cervical Spinal Stenosis Discharge Discharge Diagnosis / Problem: cervical stenosis Discharge Goals Goal(s): Improve function Activity Recommendations Activity Limitations: per Instructions/Follow-up section . Instructions / Follow-Up Instructions / Follow-Up ACTIVITY RECOMMENDATIONS: SELF CARE INSTRUCTIONS AFTER CERVICAL FUSIONS 1. No smoking. Smoking drastically decreases the chance of a solid fusion. 2. No bending, lifting more than 5 pounds, or twisting (roll like a log when turning in bed). 3. You may shower 3 days after surgery. Thoroughly dry wound. Do not soak in the tub. 4. Cervical collar: Must be worn at all times including sleeping. You may remove the brace only to bath, eat and if you are sitting in a recliner. 5. Please walk as much as you can for exercise. Gradually increase the distance that you walk as your endurance increases. SPECIAL CARE INSTRUCTIONS: VERY IMPORTANT TO READ AND REVIEW A. Do not take any anti-inflammatory medications (i.e. Indocin, Advil, Aspirin, Naprosyn, Aleve, Motrin, etc.) as these may inhibit the chance of a solid fusion. Tylenol is okay to take. B. Your surgical incision has been closed with a cosmetic suture under the skin that will dissolve in about 6 weeks. In 14 days, you can use a pair of clean scissors and cut the suture that is left outside of the skin at the ends of your incision. C. Complications are uncommon, but please contact us if you have any signs or symptoms of: 1. wound infection (fever higher than 102.5 degrees F, redness, separation of wound, drainage, or increasing pain from the incision) 2. blood clots in legs (pain, swelling, redness and warmth in legs) 3. urinary tract infection (fever higher than 102.5 degrees, burning upon urination or increased frequency of urination) 4. nerve problems (inability to walk on your toes or heels, numbness, loss of bowel or bladder control) 5. any other symptoms that concern you. D. Please call the office at if you have any concerns or questions about your operation or recovery. MANAGING PAIN AFTER SPINAL SURGERY 1. Narcotic medication is intended for short-term use and will be provided for surgical pain. Surgical pain usually lasts for a period of 4-6 weeks. Narcotic medication includes Percocet, Vicodin, Darvocet, Tylenol #3 or Lortab. 2. Longer-term pain is more appropriately treated with non-narcotic medication such as Tylenol ES. 3. Muscle spasm is not appropriately treated with narcotics. Muscle relaxers such as Soma, Flexeril or Skelaxin can be used along with Tylenol ES. 4. Remember that we all live with some "aches and pains". This is not unusual or uncommon after an injury or as we get older. 5. We will provide appropriate medication within the normal guidelines of their prescribed use. We will also be very cautious and aware of potential abuse and extended duration of patients' medication needs. 6. Please allow 2-3 days to process refills. Prescriptions will not be mailed but must be picked up at the office. FOLLOW UP VISIT: Keep your scheduled follow-up appointment. Any questions, please call the office at . Current Hospital Diet Patient's current hospital diet: Clear Liquid Diet, Diabetes Type 2 Diet Discharge Diet Recommended Diet: Regular Diet Procedures Procedures Performed: #1 posterior cervical decompression C3 C4 C5. #2 posterior cervical fusion C3 to C7. #3 placement posterior cervical instrumentation using globus rods and screws C3 to C7. #4 placement of locally harvested morcellized autograft in the posterior gutters. #5 placement of infuse collagen sponge and Master graft the posterior gutters. Pending Studies Studies pending at discharge: no Laboratory Results Hemoglobin A1c Test 07/14/17 08:27 Range/Units Estimated Average Glucose 128 mg/dl Hemoglobin A1c 6.1 H 4.5-5.6 % Medical Emergencies . Who to Call and When: Medical Emergencies: If at any time you feel your situation is an emergency, please call 911 immediately. . Non-Emergent Contact Non-Emergency issues call your: Primary Care Provider . "Provider Documentation" section prepared by Domenico Haile. . VTE Core Measure Inpt VTE Proph given/why not?: Bee Lassiter, [facility]
--- NOTE | 2017-07-16 10:47 | Progress Note ---
Progress Note Date of Service Jul 16, 2017. Progress Note Patient has mostly posterior cervical neck pain. It is controlled. She she notes improvement of her arm numbness and tingling. She does not describe any radicular complaints. She swallowing recently well denies shortness of breath. On exam she is sitting in chair as good strength testing certainly improved from her preoperative status. Assessment status post anterior posterior cervical decompression fusion. Planned this time will continue physical therapy occupational therapy throughout the weekend. Anticipate possible home Tuesday.
[2017-07-16] MEDS: DULOXETINE (CYMBALTA) 30 MG CAP PO SCH (20:55)
[2017-07-16] MEDS: PRAVASTATIN SOD 20 MG TAB PO SCH (20:55)
[2017-07-17] VITALS (14 sets, daily range): BP systolic 125–166; BP diastolic 77–88; PULSE 61–88; TEMP 36.6–37; O2SAT 91–98
[2017-07-17] MEDS ORDERED: BISACODYL 10 MG SUPP PR PRN (06:00)
[2017-07-17] MEDS ORDERED: BISACODYL 5 MG TABEC PO PRN (06:00)
--- NOTE | 2017-07-17 07:58 | Orthopedic Progress Note ---
Orthopedic Progress Note Date of Service Jul 17, 2017. Subjective Post OP Day: 2 Reports: feeling well Additional Notes: Yaz is postoperative day due to posterior cervical fusion and postoperatively for anterior cervical fusion. She is doing well. She notes by upper and lower extremity weakness. No radicular pain. Biggest complaint is posterior cervicalgia. Denies dysphagia or dysphonia. Drain output was 20 mL last shift. In physical therapy yesterday ambling roughly 100 feet. Objective calves soft nontender, dressing C/D/I, incision C/D/I, A&O x3 She sitting a chair. No obvious distress. [place] J collar intact. Anterior cervical dressing is clean dry and intact. Arelis cervical dressing also clean dry and intact. She does have global weakness bilateral upper extremities. Date Time Temp Pulse Resp B/P (MAP) Pulse Ox O2 Delivery O2 Flow Rate FiO2 07/17/17 07:46 37.0 69 16 166/77 95 Room Air 07/17/17 07:43 71 16 95 Room Air 07/17/17 04:00 36.6 61 16 164/81 95 Room Air 07/17/17 03:05 65 16 94 Room Air 07/16/17 23:09 65 16 93 Room Air 07/16/17 23:08 36.9 71 17 172/87 (115) 91 Room Air 07/16/17 21:01 36.7 73 16 152/78 95 Room Air 07/16/17 20:16 68 16 94 Room Air 07/16/17 16:00 96 Room Air 07/16/17 16:00 73 16 135/81 96 Room Air 07/16/17 15:28 16 93 Room Air 07/16/17 15:13 36.9 74 18 135/81 (99) 93 Room Air 07/16/17 13:00 36.9 80 16 137/75 94 Room Air 07/16/17 11:06 67 16 91 Room Air 07/16/17 11:00 37.0 66 18 144/80 94 Room Air 07/16/17 10:37 74 95 07/16/17 09:00 36.7 74 18 150/83 93 Room Air 07/16/17 07:56 75 16 92 Room Air Assessment & Plan Assessment: Postoperative day 2 posterior cervical fusion. Postoperatively for anterior cervical fusion Plan: We'll continue with [place] J collar at all times. Maintain JOSE G drain and dressing today. Continue physical therapy. Continue with pain control. She does report she is quite sensitive to narcotics. Anticipate discharge home tomorrow
[2017-07-17] MEDS ORDERED: SOD PHOSPHATE/SOD BIPHOSPHATE ENEMA 132 ML BTL PR PRN (08:15)
[2017-07-17] MEDS: ONDANSETRON INJ 2 MG/ML 2 ML VIAL IV PRN (08:59)
[2017-07-17] MEDS: OXYCODONE HCL IR 5 MG TAB (IMMEDIATE RELEASE) PO PRN ×4 (09:03→23:46)
[2017-07-17] MEDS: INSULIN ASPART 100 UNITS/ML 3 ML PEN SC SCH ×4 (09:04→20:32)
[2017-07-17] MEDS: POLYETHYLENE (MIRALAX) 17 GM PACK PO SCH (09:47)
[2017-07-17] MEDS: DOCUSATE SODIUM 100 MG CAP PO SCH ×2 (09:47→20:30)
[2017-07-17] MEDS: ACETAMINOPHEN IV 100 ML IV PRN ×2 (12:13→19:45)
--- NOTE | 2017-07-17 12:49 | Pharmacy Progress Note ---
Glycemic Control Progress Note Date of Service Jul 17, 2017. Scope Glycemic Pharmacist consulted for glycemic control to write orders per [facility] inpatient glycemic control protocol. Objective Accuchecks BSG (last 24hrs): Test 07/16/17 17:10 07/16/17 20:52 07/17/17 07:58 07/17/17 12:10 Bedside Glucose 139 mg/dl (70-90) 103 mg/dl (70-90) 77 mg/dl (70-90) 93 mg/dl (70-90) HbA1c: Test 07/14/17 08:27 Hemoglobin A1c 6.1 % (4.5-5.6) H Recent Pertinent Medications The patient is currently receiving: * Basal insulin: Lantus one time doses per pharmacy - LAST DOSE ON 07/15 * Correctional Insulin: Novolog Correction per scale ACHS Goal Range: Low 110 mg/dL - High 140 mg/dL Correction Factor: 45 mg/dL/unit * Prandial insulin: Per carb ratio of 1 unit per 20 grams CHO consumed Outpatient Anti-Diabetic Meds Januvia 100mg PO Daily at 1200 Assessment & Plan ASSESSMENT: * See progress note from 07/13 for more background info, in short: * Pt receiving SQ basal bolus insulin regimen for hyperglycemia secondary to baseline DM (outpatient regimen on hold), recent surgery, s/p decompression and posterior cervical stabilization, POD#2, and previous spinal surgery 07/13, and IV steroids pre and post op, completed yesterday morning. * Blood sugars at goal, steroids completed, changes needed to insulin regimen: * Discontinue CR, and restart home oral med * Anticipate discharge tomorrow. PLAN FOR INPATIENT GLYCEMIC CONTROL: * Oral Agents * Resume Januvia 100mg PO daily at 1200 tomorrow * Bolus insulin * NovoLog per scale ACHS or Q6hrs while NPO * Goal Range: Low 110 mg/dL - High 140 mg/dL * CHANGE Correction Factor: 40 mg/dL/unit * DISCONTINUE Nutritional / Prandial insulin per carb ratio RECOMMENDATIONS FOR DISCHARGE: * Continue Januvia 100mg PO daily at noon (A1c = 6.1%) * Please note that the plan above was derived based on current level of insulin resistance and hospital stress. These recommendations are appropriate for inpatient admission only. Plan of care upon discharge will need to be reassessed to avoid potential outpatient hypo/hyperglycemia. Thank you.
[2017-07-17] MEDS: PRAVASTATIN SOD 20 MG TAB PO SCH (20:30)
[2017-07-17] MEDS: DULOXETINE (CYMBALTA) 30 MG CAP PO SCH (20:30)
[2017-07-18] VITALS (7 sets, daily range): BP systolic 140–164; BP diastolic 79–100; PULSE 75–84; TEMP 36.9–37.1; O2SAT 92–95
[2017-07-18] MEDS: INSULIN ASPART 100 UNITS/ML 3 ML PEN SC SCH ×4 (08:00→21:00)
--- NOTE | 2017-07-18 08:12 | Anesthesiology Progress Note ---
Anesthesia Post Op Note Date & Time Jul 18, 2017 at 08:12 Vital Signs Vital Signs Past 12 Hours Date Time Temp Pulse Resp B/P (MAP) Pulse Ox O2 Delivery O2 Flow Rate FiO2 07/18/17 07:20 77 16 92 Room Air 07/18/17 03:15 76 16 94 Room Air 07/17/17 23:49 Room Air 07/17/17 23:49 36.9 74 16 125/88 93 Room Air 07/17/17 23:07 73 16 92 Room Air 07/17/17 22:59 36.9 74 16 125/88 (100) 93 Room Air 07/17/17 20:33 36.9 75 18 155/79 95 Room Air Notes Mental Status: alert / awake / arousable, participated in evaluation Pt Amnestic to Procedure: Yes Nausea / Vomiting: adequately controlled Pain: adequately controlled Airway Patency, RR, SpO2: stable & adequate BP & HR: stable & adequate Hydration State: stable & adequate Anesthetic Complications: no major complications apparent
[2017-07-18] MEDS: ONDANSETRON INJ 2 MG/ML 2 ML VIAL IV PRN ×2 (08:25→09:51)
[2017-07-18] MEDS: DOCUSATE SODIUM 100 MG CAP PO SCH ×2 (10:32→21:03)
[2017-07-18] MEDS: POLYETHYLENE (MIRALAX) 17 GM PACK PO SCH (10:32)
[2017-07-18] MEDS: SITAGLIPTIN 100 MG TAB PO SCH (10:33)
[2017-07-18] MEDS: OXYCODONE HCL IR 5 MG TAB (IMMEDIATE RELEASE) PO PRN (10:42)
[2017-07-18] MEDS: ACETAMINOPHEN IV 100 ML IV PRN ×2 (10:42→21:04)
[2017-07-18] MEDS ORDERED: KETOROLAC TROMETHAMINE 15 MG/ML VIAL IV. STA (11:25)
--- NOTE | 2017-07-18 15:07 | Progress Note ---
Progress Note Date of Service Jul 18, 2017. Progress Note Patient complaining mostly posterior cervicalgia. Arm symptoms steadily improving. Struggling with some nausea today. On exam she demonstrates improved neurologic function and strength. She does appear to be somewhat uncomfortable she is wearing her collar is requested. Assessment status post anterior posterior cervical decompression fusion replant this time will maintain the JOSE G drain another day start Toradol and hopefully home tomorrow.
[2017-07-18] MEDS: KETOROLAC TROMETHAMINE 15 MG/ML VIAL IV. PRN (18:34)
[2017-07-18] MEDS: DULOXETINE (CYMBALTA) 30 MG CAP PO SCH (21:03)
[2017-07-18] MEDS: PRAVASTATIN SOD 20 MG TAB PO SCH (21:03)
[2017-07-19] VITALS (8 sets, daily range): BP systolic 138–150; BP diastolic 82–90; PULSE 72–84; TEMP 36.9; O2SAT 91–96
[2017-07-19] MEDS: KETOROLAC TROMETHAMINE 15 MG/ML VIAL IV. PRN ×2 (00:32→08:40)
[2017-07-19] MEDS: ONDANSETRON INJ 2 MG/ML 2 ML VIAL IV PRN (07:54)
[2017-07-19] MEDS: DOCUSATE SODIUM 100 MG CAP PO SCH (09:07)
[2017-07-19] MEDS: POLYETHYLENE (MIRALAX) 17 GM PACK PO SCH (09:07)
[2017-07-19] MEDS: INSULIN ASPART 100 UNITS/ML 3 ML PEN SC SCH ×2 (09:08→12:00)
[2017-07-19] MEDS: ACETAMINOPHEN IV 100 ML IV PRN (10:53)
--- NOTE | 2017-07-19 11:28 | Orthopedic Progress Note ---
Orthopedic Progress Note Date of Service Jul 19, 2017. Subjective Post OP Day: 4 Reports: feeling well Additional Notes: Patient is doing well. JOSE G drain output shift was 5 mL. History and physical therapy and really 135 feet. We are currently awaiting authorization for rehabilitation. Objective calves soft nontender, N/V intact, dressing C/D/I, A&O x3 [place] J collar is intact. Both anterior and posterior dressings clean dry and intact. Upper extremities are neurovascularly intact. Date Time Temp Pulse Resp B/P (MAP) Pulse Ox O2 Delivery O2 Flow Rate FiO2 07/19/17 11:17 82 16 92 Room Air 07/19/17 08:08 36.9 80 18 150/90 (110) 91 Room Air 07/19/17 07:55 84 16 94 Room Air 07/19/17 07:50 Room Air 07/19/17 03:30 82 16 96 Room Air 07/19/17 00:36 73 138/83 (101) 07/19/17 00:03 73 16 91 Room Air 07/18/17 23:24 37.1 77 16 164/100 (121) 94 Room Air 07/18/17 23:17 Room Air 07/18/17 19:30 80 16 95 Room Air 07/18/17 16:28 36.9 77 16 140/79 (99) 95 Room Air 07/18/17 16:00 Room Air 07/18/17 15:20 84 16 95 Room Air 07/18/17 11:32 75 16 95 Room Air Assessment & Plan Assessment: Postoperative day 4 posterior cervical fusion. Postoperatively for anterior cervical fusion Plan: We'll continue with [place] J collar at all times. Maintain JOSE G drain and dressing today. Continue physical therapy. Continue with pain control. She does report she is quite sensitive to narcotics. Anticipate discharge rehab once approved Inhouse Planning DVT Prophylaxis: TEDs, SCDs
[2017-07-19] MEDS ORDERED: ONDA4TAB65 PO (11:45)
--- NOTE | 2017-07-19 11:48 | Discharge Summary ---
Orthopedic Discharge Summary Admission Date/Reason Jul 13, 2017 at 09:00 Cervical Spinal Stenosis. Discharge Date/Disposition Jul 19, 2017 group home facility Diagnosis Principal Diagnosis: Cervical spinal stenosis with myelopathy Procedure(s) Performed Anterior cervical discectomy and fusion C4 through C7 Followed by 2 days later posterior cervical decompression fusion C3 through C7 Medication Reconciliation New Medications: Ondansetron Hcl (Zofran) 4 Mg Tab 4 MG PO PRN for Nausea, #30 TAB Oxycodone HCl (Oxycodone HCl) 5 Mg Tab 5-10 MG PO Q4H PRN for moderate-severe pain for 30 Days, #60 TAB Continued Medications: Amoxicillin (Amoxil) Unknown Strength Cap Unknown Dose PO TID, #30 CAP Aspirin (Aspirin Ec) 81 Mg Tab 81 MG PO QPM Celecoxib (CeleBREX) 200 Mg Cap 1 CAP PO QAM for 30 Days, #30 CAP currently on hold per surgeon Ciprofloxacin Tab (Cipro) Unknown Strength Tab Unknown Dose PO BID, TAB Cranberry-Vitamin C-Vitamin E (Cranberry Plus Vitamin C) 1 Cap Cap 1 CAP PO QAM Dicyclomine Hcl (Dicyclomine Hcl) 20 Mg Tab 1 TAB PO BID PRN for PRN for 30 Days, #60 TAB 11 Refills Duloxetine HCl (Cymbalta) 30 Mg Cap 1 CAP PO QPM for 30 Days, CAP 2 Refills Duloxetine Hcl (Cymbalta) 60 Mg Cap 60 MG PO QPM, CAP Fenofibrate (Tricor ) 134 Mg Cap 134 MG PO QPM, CAP Gabapentin (Neurontin) 300 Mg Cap 300 MG PO BID, CAP Meclizine Hcl (Meclizine Hcl) 25 Mg Tab 1 TAB PO TID PRN for VERTIGO for 10 Days, #30 TAB Omeprazole (Prilosec) 20 Mg Capcr 20 MG PO DAILY PRN for Indigestion, CAP Pravastatin (Pravachol ) 20 Mg Tab 20 MG PO QPM, 0 Refills Sitagliptin Phosphate (Januvia) 100 Mg Tab 100 MG PO NOON, TAB Valsartan/Hctz (Diovan Hct 160MG/25MG) 1 Tab Tab 1 TAB PO QAM, TAB Admission Physical Exam As per Admitting History & Physical. Hospital Course Patient had an uneventful hospital course. He had complaints of posterior cervicalgia status post posterior cervical decompression fusion. Arm symptoms improving. Still quite weak globally though. She is up and ambulatory roughly 100 feet with physical therapy with the assistance of a walker. No dysphagia Or dysphonia. Discharge Instructions Please refer to the electronic Patient Visit Report (Discharge Instructions) for additional information.
[2017-07-19] MEDS: SITAGLIPTIN 100 MG TAB PO SCH (12:49)
== END 2017-07-19 14:06 | DRG 454 ==
LOC: C.ACU 07:58 → C.3E 09:00 → ENRESERV 12:59
PROVIDERS: ADMIT Orthopaedic Surgery Orthopaedic Surgery of the Spine; ATTEND Orthopaedic Surgery Orthopaedic Surgery of the Spine
PROC: 0RG20AJ Fusion of 2 or more Cervical Vertebral Joints with Interbody Fusion Device, Posterior Approach, Anterior Column, Open Approach (ICD-10-PCS; principal; 2017-07-13 10:05)
PROC: 0PB30ZZ Excision of Cervical Vertebra, Open Approach (ICD-10-PCS; principal; 2017-07-13 10:05)
PROC: 0RG2071 Fusion of 2 or more Cervical Vertebral Joints with Autologous Tissue Substitute, Posterior Approach, Posterior Column, Open Approach (ICD-10-PCS; 2017-07-15)
DX: M48.02 Spinal stenosis, cervical region (principal); M47.12 Other spondylosis with myelopathy, cervical region; Z79.82 Long term (current) use of aspirin; I10 Essential (primary) hypertension; E78.5 Hyperlipidemia, unspecified; K21.9 Gastro-esophageal reflux disease without esophagitis; E11.9 Type 2 diabetes mellitus without complications; E66.9 Obesity, unspecified